=== PATIENT | male | born 1965 | race Caucasian/White ===

== ENCOUNTER → 2018-10-18 | Outpatient (CLI) | payer BC, OTHER ==
[~2018-10-18] MED LIST: ACETAMINOPHEN325 M1 PO; APHEN325 MG PO; ASPIRIN325 PO; BAYER CHEWABLE81 MG PO; CHANTIX1 MG; EFFIENT10 MG PO; IMDUR 30 MG TAB30 M1 PO; IMDUR PO; LISINOPRIL10 MG PO; LIVALO2 MG PO; LOPRESSOR 50 MG50 M1 PO; LOPRESSOR25 PO; NITROSTAT0.4 MG SL; NORCO 5-325 TA1 EACH PO; PLAVIX 75 MG TA75 MG PO; ZETIA10 MG PO; ZOFRAN 4 MG ORAL4 M1 DIS
== END ==
LOC: NUC 07:32
DX: I25.10 Atherosclerotic heart disease of native coronary artery without angina pectoris (principal); E78.5 Hyperlipidemia, unspecified; I10 Essential (primary) hypertension; Z95.5 Presence of coronary angioplasty implant and graft; Z87.891 Personal history of nicotine dependence